=== PATIENT | female | born 1985 | race Caucasian/White ===

== ENCOUNTER 2020-09-01 01:57 | Emergency (ER) | payer OTHER ==
[~2020-09-01 01:57] MED LIST: DIAZEPAM 5MG TAB5 MG PO; IBUPROFEN800 MG PO; MEDROL 4MG DOSEP4 MG PO
[2020-09-01 02:21] LABS: BASOPHIL 0.6 % (0-2); EOSINOPHIL 1.1 % (0-5); HCT 42.8 % (37.0-47.0); HGB 14.8 g/dl (12.5-16.0); LYMPHOCYTE 29.4 % (15-48); MCHC 34.6 g/dL (32.0-36.0); MCV 95.3 fL (78.0-100.0); MONOCYTE 5.7 % (0-12); MPV 11.9 fL (6.0-9.5); NEUTROPHIL 62.6 % (41-80); NRBC 0; PLT 363 K/uL (150-400); RBC 4.49 M/uL (4.20-5.40); RDW 13.9 % (11.5-14.0)
[2020-09-01 02:23] LABS: WBC 24.3 K/uL (4.0-10.5)
[2020-09-01 02:30] LABS: INR 0.86 (0.9-1.2); PROTHROMBIN TIME 11.2 SECONDS (11.8-13.4); PTT 27.7 SECONDS (24.4-34.7)
[2020-09-01 02:31] LABS: D-DIMER 0.4 ug/mLFEU (0.00-0.41)
[2020-09-01 02:45] LABS: ALBUMIN 3.3 g/dL (3.4-5.0); BILIRUBIN - TOTAL 0.2 mg/dL (0.2-1.0); BUN/CREAT RATIO (CALC) 21.3 RATIO; CREATININE 0.94 mg/dL (0.51-0.95); FT4 (FREE T4) 1.1 ng/dL (0.76-1.46); GLOBULIN (CALCULATION) 3.6 g/dL; POTASSIUM 3.8 mmol/L (3.5-5.1); TOTAL PROTEIN 6.9 g/dL (6.4-8.2)
[2020-09-06] MEDS ORDERED: NORCO 5/3251 EACH PO (10:09)
[2020-09-20] MEDS ORDERED: HYDROCODON-ACE1 EAC6 PO (17:05)
[2020-10-05] MEDS ORDERED: HYDROCODON-ACE1 EAC6 PO (14:21)
[2020-11-14] MEDS ORDERED: OXYCODONE-ACET1 EAC1 PO (17:24)
== END 2020-09-01 04:27 | disposition home or self-care (01) ==
LOC: FER 01:57
PROVIDERS: Emergency Medicine Emergency Medical Services
DX: I47.1 Supraventricular tachycardia (principal); D72.829 Elevated white blood cell count, unspecified; F17.200 Nicotine dependence, unspecified, uncomplicated; Z88.0 Allergy status to penicillin
CPT/HCPCS: 36415; 71045; 80053; 84439; 84443; 84484; 85025; 85379; 85610; 85730; 93005; J0153; J7030